=== PATIENT | female | born 1955 | race Two or more races ===

== ENCOUNTER 2018-11-14 12:42 | Emergency (ER) | payer SELFPAY ==
[~2018-11-14] VITALS: Ht 160 cm; Wt 85.0 kg
[2018-11-14 12:52] VITALS: BP 156/106
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
[2018-11-14] MEDS ORDERED: LIDOCAINE-MPF 1%, 2ML ONE (13:17)
[2018-11-14] MEDS ORDERED: LIDOCAINE-MPF 1%, 5ML INFIL ONE (13:30)
[2018-11-14] MEDS ORDERED: NEOSPORIN OINT. PKT 1 PACKET ONE (14:09)
--- NOTE | 2018-11-14 14:22 | NUR ---
Patient given discharge instructions and they have confirmed that they understand the instructions. Patient ambulatory with steady gait.
== END 2018-11-14 14:23 | disposition home or self-care (01) ==
LOC: ED 14:16
DX: S61.412A Laceration without foreign body of left hand, initial encounter (principal); W45.8XXA Other foreign body or object entering through skin, initial encounter; Y93.89 Activity, other specified; Y92.89 Other specified places as the place of occurrence of the external cause; Y99.8 Other external cause status
CPT/HCPCS: 12041; 99284